=== PATIENT | female | born 1945 ===

== ENCOUNTER 2019-05-09 04:46 | Day surgery (SDC) | payer OTHER ==
[~2019-05-09 04:46] MED LIST: METFORMIN HCL1000 MG PO; METFORMIN HCL500 MG PO
[2019-05-09] MEDS ORDERED: MACROBID 100 M100 MG PO (09:36)
[2019-05-09] MEDS ORDERED: ULTRACET PO (09:36)
== END 2019-05-09 13:00 | disposition home or self-care (01) ==
LOC: CIR.AMB 04:46
DX: N81.3 Complete uterovaginal prolapse (principal)